=== PATIENT | male | born 1995 ===

== ENCOUNTER → 2024-01-11 | Outpatient (REF) | payer BC ==
[2024-01-11 13:11] LABS: SEMEN APPEARANCE OPAQUE (OPAQUE)
[2024-01-11 13:12] LABS: SEMEN VISCOSITY LIQUID (LIQUID); SEMEN VOLUME 2.6 ml (2.0-5.0); SEMEN pH 8.5 (7.0-8.0); WBC CONCENTRATION <=1 M/ml (<=1 M/ml)
[2024-01-11 13:13] LABS: SPERM CONCENTRATION 16.7 M/ml (>=15.0)
== END ==
LOC: M LAB REF 13:03
PROVIDERS: ATTEND Student in an Organized Health Care Education/Training Program
DX: Z31.41 Encounter for fertility testing (principal)